=== PATIENT | female | born 1975 | race African-American/Black ===

== ENCOUNTER 2018-09-28 22:53 | Emergency (ER) | payer OTHER ==
[~2018-09-28] VITALS: Ht 167.6 cm; Wt 74.8 kg
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
[2018-09-28 23:46] LABS: ANION GAP 13 mmol/L (7-16); BUN 21 mg/dL (7-18); CHLORIDE 107 mmol/L (98-107); CO2 24 mmol/L (21-32); CREATININE 1.2 mg/dL (0.6-1.0); GLUCOSE 86 mg/dL (74-106); HEMOGLOBIN 10.1 gm/dL (12.0-15.0); MCH 25.1 pg (26.0-34.0); MCHC 32.5 g/dL (28.0-37.0); MCV 77.5 fL (80.0-100.0); PLATELET COUNT 280 thou/uL (150-400); POTASSIUM 3.2 mmol/L (3.5-5.1); RDW 22.4 % (10.5-14.5); SODIUM 144 mmol/L (136-145); WBC 6.7 thou/uL (4.0-11.0)
[2018-09-28 23:56] LABS: ALBUMIN 3.1 g/dL (3.4-5.0); DIRECT BILIRUBIN < 0.1 mg/dL (<0.1-0.3); SGOT 22 U/L (15-37); SGPT 35 U/L (30-65); TOTAL BILIRUBIN 0.2 mg/dL (<0.1-1.0); TOTAL PROTEIN 7.2 g/dL (6.4-8.2); TROPONIN-I <0.06 ng/mL (<0.06)
[2018-09-29 00:27] LABS: ABSOLUTE NEUTROPHILS 3.6 thou/uL (1.4-8.2)
[2018-09-29 00:35] LABS: ANISOCYTOSIS 3+; PLATELET ESTIMATE NORMAL; POIKILOCYTOSIS 1+
[2018-09-29] MEDS ORDERED: ULTRAM 50MG TAB50 MG PO (03:25)
[2018-09-29] MEDS ORDERED: CARAFATE 1 GM TA1 G1 PO (03:38)
[2018-09-29 03:55] VITALS: BP 146/97
--- NOTE | 2018-09-29 08:46 | EKG ---
[facility] [place] [address] ELECTROCARDIOGRAM REPORT Name: BETY STEVENSON Room #: DEP Khushboo#: [id number] Admission: 09/28/18 Attend Phys: Discharge: 09/29/18 Date of : 77 Report #: [id number] THIS REPORT FOR: //name// [facility] ED Test Date: 2018-09-28 Test Time: 23:10:49 Pat Name: BETY STEVENSON Department: Room: Gender: F Receptionist: : 1975 Requested By: Hannah Dumont Order Number: [id number] MD: Ryan Martin Measurements Intervals [place] Rate: 96 P: 51 [place]: 179 QRS: -27 QRSD: 114 T: 80 QT: 392 QTc: 496 Interpretive Statements Sinus rhythm Leftward axis Incomplete left bundle branch block No previous ECG available for comparison Electronically Signed On 09-29-2018 8:46:35 CDT by Ryan Martin [email or web address] <ELECTRONICALLY SIGNED> By: Ryan Martin MD, [facility] 09/29/18 [id number] Ryan Martin MD, FACC /EPI
== END 2018-09-29 03:50 | disposition home or self-care (01) ==
LOC: ER 22:53
PROVIDERS: Emergency Medicine
DX: R07.89 Other chest pain (principal); F31.9 Bipolar disorder, unspecified; F20.9 Schizophrenia, unspecified; Z90.89 Acquired absence of other organs

== ENCOUNTER 2019-08-23 04:08 | Emergency (ER) | payer OTHER ==
[~2019-08-23] VITALS: Ht 167.6 cm; Wt 77.1 kg
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
[~2019-08-23 04:08] MED LIST: CARAFATE 1 GM TA1 G1 PO; ULTRAM 50MG TAB50 MG PO
[2019-08-23 05:27] VITALS: BP 212/121
== END 2019-08-23 05:30 | disposition left against medical advice (07) ==
LOC: ER 04:08
DX: F10.129 Alcohol abuse with intoxication, unspecified (principal); Z79.899 Other long term (current) drug therapy; Z59.0 Homelessness; Y90.9 Presence of alcohol in blood, level not specified

== ENCOUNTER 2019-10-21 14:35 | Emergency (ER) | payer OTHER ==
[~2019-10-21] VITALS: Ht 172.7 cm; Wt 77.1 kg
[2019-10-21 15:34] VITALS: BP 182/125
== END 2019-10-21 15:34 | disposition home or self-care (01) ==
LOC: ER 14:35
DX: F20.9 Schizophrenia, unspecified (principal); F10.129 Alcohol abuse with intoxication, unspecified; F31.9 Bipolar disorder, unspecified; Z86.73 Personal history of transient ischemic attack (TIA), and cerebral infarction without residual deficits; Z98.890 Other specified postprocedural states; Z87.442 Personal history of urinary calculi; Z59.0 Homelessness; Y90.9 Presence of alcohol in blood, level not specified